=== PATIENT | female | born 1985 | race Caucasian/White ===

== ENCOUNTER 2020-03-31 09:06 | Emergency (ER) | payer OTHER, SELFPAY ==
[2020-03-31 09:12] VITALS: BP 127/75; PULSE 91; RESP 18; TEMP 37.2; O2SAT 98
--- NOTE | 2020-03-31 09:34 | ED.URI ---
HPI - URI/Sore Throat General Chief Complaint: Upper Respiratory Infection Stated Complaint: sore throat/fever 100.2 Time Seen by Provider: 03/31/20 09:34 Source: patient History of Present Illness HPI Narrative: patient presents with a sore throat and fever. no trouble swallowing no cough no nasal congestion. Patient reported a fever this am. releived with tylenol. Patient states she feels as if she has strep throat again. Patient states when she has strep throat she has the same symptoms fever body aches feels like razors when she swallows. No trouble swallowing no drooling can open mouth fully. MD elicited complaint: sore throat Exacerbating factors: swallowing Related Data Home Medications Medication Instructions Recorded Confirmed ascorbic acid (vitamin C) 500 mg PO DAILY 03/31/20 03/31/20 nutritional supplement-fiber ea 03/31/20 [Juice Plus] Allergies Allergy/AdvReac Type Severity Reaction Status Date / Time No Known Allergies Allergy Verified 02/17/20 11:15 Review of Systems Review of Systems: Narrative: CONSTITUTIONAL: Denies fever, chills, or sweats. EYES: Denies visual changes, redness, or discharge. ENT: Denies rhinorrhea, congestion, sore throat, or otalgia. CARDIOVASCULAR: Denies chest pain, palpitations, or edema. RESPIRATORY: Denies cough or dyspnea. GASTROINTESTINAL: Denies abdominal pain, nausea, vomiting, or diarrhea. GENITOURINARY: Denies dysuria or hematuria. SKIN: Denies rash or itching. MUSCULOSKELETAL: Denies back pain, joint pain, or myalgia. NEUROLOGIC: Denies headache, numbness, or weakness. PSYCHIATRIC: Denies anxiety or depression. [facility] Past Medical History Medical History (Updated 03/31/20 @ 09:43 by SHERRIE Olmstead) Sensorineural hearing loss (SNHL) of both ears Surgical History Surgical History History of 3 sections 2012, 2014, 2017 History of D&C 2016 Family History Family History Father Hypertension Mother Hypertension Family history of diabetes mellitus in first degree relative Social History Social History Smoking status: Never smoker Alcohol intake: current Comments At time of signature, agree with nursing past medical, surgical, social and family history. There is no relevant family history pertinent to the presenting complaint Exam Narrative: Exam Narrative: GENERAL: Well-appearing, well-nourished, and in no acute distress. HEAD: Normocephalic, atraumatic. EYES: PERRLA and EOMI. ENT: Nares clear, no rhinorrhea or epistaxis. Mucous membranes moist. Mild pharyngeal erythema no exudate no drooling no trismus able to open mouth fully NECK: Supple. CHEST: Clear to auscultation. No respiratory distress. HEART: Regular rate and rhythm. No murmur heard. Normal peripheral pulses. ABDOMEN: Soft, nontender, nondistended, normal active bowel sounds. EXTREMITIES: Normal range of motion. No edema. SKIN: Warm, dry, no rash. NEURO: No focal deficits. Alert and oriented x3. [place] Coma Scale Eye Opening: Spontaneous 4 [place] Coma Scale Motor: Obeys Commands 6 [place] Coma Scale Verbal: Oriented 5 [place] Coma Scale Total 15 Course Vital Signs Vital signs: Vital Signs Temperature 37.2 C 03/31/20 09:12 Pulse Rate 91 03/31/20 09:12 Respiratory Rate 18 03/31/20 09:12 Blood Pressure 127/75 03/31/20 09:12 Pulse Oximetry 98 03/31/20 09:12 Temperature 37.2 C 03/31/20 09:12 Pulse Rate 91 03/31/20 09:12 Respiratory Rate 18 03/31/20 09:12 Blood Pressure 127/75 03/31/20 09:12 Pulse Oximetry 98 03/31/20 09:12 MDM - URI/Sore Throat Lab Data Labs: Strep Screen Presumptive Negative *(Reference Range: Negative)* Critical Care Time Critical Care Time Critical Care T
== END 2020-03-31 09:45 | disposition home or self-care (01) ==
PROVIDERS: Emergency Provider Nurse Practitioner Family; PCP Family Medicine
DX: J02.9 Acute pharyngitis, unspecified (principal)
CPT/HCPCS: 87081; 87880; 99213; G0463

== ENCOUNTER → 2021-03-28 13:49 | Outpatient (REF) | payer OTHER, SELFPAY | LOC: ANHLAB 13:49 | PROVIDERS: PCP Family Medicine; Visit Provider Nurse Practitioner | DX: D49.2 Neoplasm of unspecified behavior of bone, soft tissue, and skin (principal) | CPT/HCPCS: 88305 ==

== ENCOUNTER 2021-04-29 13:19 | Outpatient (CLI) | payer OTHER, SELFPAY ==
--- NOTE | ~2021-04-29 | MM_ITS ---
EXAMINATION: MM diagnostic charlie BI w doug HISTORY: Waxing and waning lumps in the medial breast TECHNIQUE: Additional 3-D tomosynthesis images of the breasts were performed and synthetic 2-D images were generated. CAD analysis was submitted and interpreted. COMPARISON: 11/26/2018 BREAST PARENCHYMAL COMPOSITION: The breasts are heterogeneously dense, which may obscure small masses . FINDINGS: An asymmetry is present in the middle third of the outer right breast 4 cm from the nipple on the craniocaudal view. No definite mammographic correlate is identified for the patient's reported palpable abnormalities of concern. There is no suspicious calcification or architectural distortion. IMPRESSION: 1. No mammographic correlate for the patient's reported breast lumps. Bilateral breast ultrasound tar geted to the areas of palpable concern and ultrasound of the upper outer right breast is recommended. BI-RADS Category 0: Incomplete: Needs additional imaging evaluation. Reviewed, dictated and finalized at location A. QUALITY TECHNICIAN IMPRESSION: 1. No mammographic correlate for the patient's reported breast lumps. Bilateral breast ultrasound targeted to the areas of palpable concern and ultrasound of the upper outer right breast is recommended. BI-RADS Category 0: Incomplete: Needs additional imaging evaluation.
== END 2021-04-29 13:20 | disposition home or self-care (01) ==
LOC: ANHIMG 13:22
PROVIDERS: PCP Family Medicine; Visit Provider Obstetrics & Gynecology
DX: N64.4 Mastodynia (principal); R92.8 Other abnormal and inconclusive findings on diagnostic imaging of breast
CPT/HCPCS: 77062; 77066; G0279

== ENCOUNTER 2021-05-11 11:52 | Outpatient (CLI) | payer OTHER, SELFPAY ==
--- NOTE | ~2021-05-11 | US_ITS ---
US breast BI limited DATE: 05/11/2021 12:30 INDICATION: Breast pain. Breast lumps. TECHNIQUE: Bilateral complete breast ultrasound including all 4 quadrants and subareolar areas. Color flow imaging was performed. COMPARISON: 04/29/2021 bilateral diagnostic mammography FINDINGS: No suspicious mass or shadowing or other significant sonographic finding is noted. IMPRESSION: BI-RADS Category 1: Negative Reviewed, dictated and finalized at Location A. Reviewed, dictated and finalized at location A. ZER OPERATOR
== END 2021-05-11 11:53 | disposition home or self-care (01) ==
LOC: ANHIMG 11:53
PROVIDERS: PCP Family Medicine; Visit Provider Obstetrics & Gynecology
DX: N64.4 Mastodynia (principal)
CPT/HCPCS: 76642

== ENCOUNTER → 2021-05-30 14:07 | Outpatient (REF) | payer OTHER, SELFPAY | LOC: ANHLAB 14:07 | PROVIDERS: PCP Family Medicine; Visit Provider Nurse Practitioner | DX: D22.39 Melanocytic nevi of other parts of face (principal) | CPT/HCPCS: 88305 ==

== ENCOUNTER 2022-02-17 13:24 | Outpatient (CLI) | payer OTHER, SELFPAY | END 2022-02-17 13:25 | disposition home or self-care (01) | LOC: ANHLAB 13:25 | PROVIDERS: PCP Family Medicine; Visit Provider Otolaryngology | DX: J02.9 Acute pharyngitis, unspecified (principal) | CPT/HCPCS: 87081; 87880 ==

== ENCOUNTER 2022-04-30 14:48 | Emergency (ER) | payer OTHER, SELFPAY ==
[2022-04-30 15:24] VITALS: BP 118/76; PULSE 89; RESP 14; TEMP 36.9; O2SAT 100
--- NOTE | 2022-04-30 17:35 | ED.URI ---
HPI - URI/Sore Throat General Chief Complaint: Upper Respiratory Infection Stated Complaint: Cough/Fever/Chills Time Seen by Provider: 04/30/22 17:35 Source: patient, RN notes reviewed and old records reviewed Mode of arrival: ambulatory Limitations: no limitations History of Present Illness HPI Narrative: 37 year old female who presents to express care with complaints of fevers, chills body aches, cough which is productive at times for the past 3 days. 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 Patient reports that her kids have also been ill with similar symptoms. She states that she took a home COVID test 2 days ago which was negative. Patient has treated self with cold medication and OTC Tylenol and Ibuprofen. MD elicited complaint: fever, cough, rhinorrhea and nasal congestion Onset (ago): day(s) (day 3 of symptoms) Treatments prior to arrival: acetaminophen, ibuprofen and cold medicine Related Data Allergies Allergy/AdvReac Type Severity Reaction Status Date / Time No Known Allergies Allergy Verified 04/30/22 16:26 Review of Systems Review of Systems: CONSTITUTIONAL: Reports malaise, chills, sweats, or fever. EYES: Denies visual changes, redness, or discharge. ENT: Reports rhinorrhea, congestion, sinus pain, otalgia and sore throat. CARDIOVASCULAR: Denies chest pain, palpitations, or edema. RESPIRATORY: Reports cough.? Denies dyspnea. GASTROINTESTINAL: Denies abdominal pain, nausea, vomiting, diarrhea SKIN: Denies rash or itching. MUSCULOSKELETAL: Reports myalgia. NEUROLOGIC: Denies headache. All systems reviewed & are unremarkable except as noted in HPI and below PMFSH Past Medical History Medical History Sensorineural hearing loss (SNHL) of both ears Surgical History Surgical History History of 3 sections 2013, 2014, 2017 History of D&C 2016 Family History Family History Father Hypertension Mother Hypertension Family history of diabetes mellitus in first degree relative Social History Social History Smoking status: Unknown if ever smoked Alcohol intake: current Comments At time of signature, agree with nursing past medical, surgical, social and family history. There is no relevant family history pertinent to the presenting complaint Exam Narrative: GENERAL: Well-appearing, well-nourished, and in no acute distress. HEAD: Normocephalic EYES: PERRLA, conjunctivae clear ENT: Nares clear, turbinates edematous and erythematous, clear discharge. Mucous membranes moist. TM pearly clark with dull light reflex bilaterally; no tragal tenderness. Oropharynx erythematous without lesions. Tonsils not enlarged and without exudate, no drooling, no hoarseness, no trismus, uvula midline. NECK: Supple. No lymphadenopathy CHEST: Clear to auscultation, breath sounds equal. No wheezing, rhonchi, rales, or stridor. No respiratory distress, speaks in full sentences.harsh cough, SAO2 100% on room air HEART: Regular rate and rhythm. No murmur heard. SKIN: Warm, dry, no rash. NEURO: Alert and oriented x3. PSYCH: Normal mood and affect Course Course Emergency Course: Patient is aware of diagnosis, understands and agrees to treatment plan.? Anticipatory guidance given.? Patient agrees to follow-up as directed and is aware of reasons to seek care at the emergency department. Portions of this record may have been created with voice recognition software Level of Care: Express Care Visit Vital Signs Vital signs: Vital Signs Temperature 36.9 C 04/30/22 15:24 Pulse Rate 89 04/30/22 15:24 Respiratory Rate 14 04/30/22 15:24 Blood Pressure 118/76 04/30/22 15:24 Pulse Oximetry 100 04/30/22 15:24 Oxygen Deliv
== END 2022-04-30 18:15 | disposition home or self-care (01) ==
PROVIDERS: Emergency Provider Registered Nurse; PCP Family Medicine
DX: J11.1 Influenza due to unidentified influenza virus with other respiratory manifestations (principal)
CPT/HCPCS: 87804; 99213; G0463

== ENCOUNTER 2023-04-18 07:47 | Outpatient (CLI) | payer OTHER, SELFPAY ==
[2023-04-18 08:10] LABS: Appearance Urine Clear (Clear); Bilirubin Urine Negative (Negative); Blood Urine Negative (Negative); Color Urine Yellow (Yellow); Glucose Urine UA Negative (Negative); Ketones Urine Negative (Negative); Leukocyte Esterase Ur Negative LEU/UL (NEGATIVE); Nitrate Urine Negative (Negative); Protein Urine Negative (Negative); Urobilinogen Urine 0.2 mg/dL (<2.0); pH Urine 5.5 (5.0-9.0)
[2023-04-18 08:17] LABS: Hematocrit 43.2 % (37.0-47.0); Hemoglobin 14.5 g/dL (12.0-15.0); Mean Corpuscular HGB Conc 33.6 g/dl (32-36); Mean Corpuscular Volume 89.4 fl (80-100); Mean Platelet Volume 10.5 fl (7.4-10.4); Platelet Count Result 209 k/mm3 (150-375); Red Blood Count 4.83 M/mm3 (4.2-5.4); Red Cell Distribution Width 12.4 % (11.5-14.5)
[2023-04-18 08:27] LABS: Alanine Aminotransferase 20 U/L (6-35); Albumin Level 4.6 g/dL (3.5-5.1); Alkaline Phosphatase 72 U/L (38-126); Anion Gap 5 mmol/L (8-16); Aspartate Amino Transferase 24 U/L (14-36); Bilirubin,Total 0.8 mg/dL (0.2-1.3); Blood Urea Nitrogen 11 mg/dL (7-17); Calcium 9.4 mg/dL (8.4-10.2); Carbon Dioxide 29 mmol/L (22-30); Chloride 101 mmol/L (98-107); Cholesterol 179 mg/dL (0-200); Estimated Glomerular Filt Rate > 60; Glucose 92 mg/dL (65-110); HDL Direct 49 mg/dL; Potassium 3.9 mmol/L (3.4-5.0); Sodium 135 mmol/L (137-145); Triglycerides 121 mg/dL (<150)
[2023-04-18 08:38] LABS: LDL Cholesterol Direct 89 mg/dL
[2023-04-18 08:57] LABS: Add Urine Microscopic? NO
== END 2023-04-18 07:48 | disposition home or self-care (01) ==
LOC: ANHLAB 07:48
PROVIDERS: PCP Family Medicine; Visit Provider Family Medicine
DX: Z00.00 Encounter for general adult medical examination without abnormal findings (principal)
CPT/HCPCS: 36415; 80053; 80061; 81003; 84443; 85027

== ENCOUNTER 2023-08-16 11:08 | Outpatient (CLI) | payer OTHER, SELFPAY ==
--- NOTE | ~2023-08-16 | MMUS_ITS ---
EXAMINATION: MM diagnostic charlie BI w doug, US breast BI complete HISTORY: Bilateral breast pain intermittently since 2019 TECHNIQUE: Full field and spot ML, MLO and CC of both breasts were performed and synthetic 2-D images were generated. CAD analysis was submitted and interpreted. High resolution bilateral complete breas t ultrasound examination including all 4 quadrants and subareolar areas was performed. COMPARISON: 04/29/2021 bilateral diagnostic mammogram BREAST PARENCHYMAL COMPOSITION: The breasts are heterogeneously dense, which may obscure small masses . FINDINGS: MAMMOGRAPHIC FINDINGS: Stable fibroglandular asymmetry is noted. No suspicious mass, architectural distortion, malignant ana laura cification, skin thickening or retraction or significant new or developing density is evident. Small masses might be missed due to the density of the stroma. Bilateral complete breast ultrasound e xamination was performed. ULTRASOUND: No suspicious mass or shadowing of either breast is detected. Right breast: 4:00 4 cm from nipple: Circumscribed oval parallel 2 x 3.8 x 5.4 mm sonolucency with no internal vas cularity or posterior shadowing, benign in appearance. Left breast: 2 x 2.7 mm sonolucency without internal vascularity or suspicious shadowing, benign in appearance. IMPRESSION: 1. Benign findings 2. Routine annual mammographic screening is recommended BI-RADS Category 2: Benign finding(s). Reviewed, dictated and finalized at location A. RIBUTION ENGINEERING TECHNOLOGIST IMPRESSION: 1. Benign findings 2. Routine annual mammographic screening is recommended BI-RADS Category 2: Benign finding(s).
== END 2023-08-16 11:09 | disposition home or self-care (01) ==
PROVIDERS: PCP Family Medicine; Visit Provider Obstetrics & Gynecology
DX: N64.4 Mastodynia (principal)
CPT/HCPCS: 76641; 77062; 77066; G0279

== ENCOUNTER 2024-07-28 16:05 | Emergency (ER) | payer OTHER, SELFPAY ==
[2024-07-28 16:36] VITALS: BP 142/85; PULSE 82; RESP 16; TEMP 37.2; O2SAT 100
--- NOTE | 2024-07-28 16:58 | ED.URI ---
HPI - URI/Sore Throat General Chief Complaint: Upper Respiratory Infection Stated Complaint: sore throat and chills Time Seen by Provider: 07/28/24 16:58 History of Present Illness HPI Narrative: 3-year-old female presented for complaint of sore throat, headache and chills. Onset today. States these her classic strep throat symptoms. Denies cough, nasal congestion, nausea, vomiting, diarrhea. Not taking anything for symptoms. Related Data Home Medications ?Medication ?Instructions ?Recorded ?Confirmed ?Last Taken ?Type No Home Medications 04/11/23 04/11/23 Unknown History Allergies Allergy/AdvReac Type Severity Reaction Status Date / Time No Known Allergies Allergy Verified 07/28/24 16:42 Review of Systems Review of Systems: Per [facility] Past Medical History Medical History Sensorineural hearing loss (SNHL) of both ears Surgical History Surgical History History of D&C 2016 History of 3 sections 2012, 2013, 2017 Family History Family History Father Hypertension Mother Hypertension Family history of diabetes mellitus in first degree relative Social History Social History Smoking status: Unknown if ever smoked Alcohol intake: current Exam Narrative: GENERAL: Mildly Ill-appearing, no acute distress. EYES: conjunctivae clear ENT: Mucous membranes moist. TMs pearly clark with normal light reflex bilaterally; no tragal tenderness. Oropharynx not erythematous without lesions. Tonsils not enlarged and without exudate. No drooling, no hoarseness, no trismus, uvula midline. No tripod positioning, hot potato voice, or soft palate swelling. NECK: Supple. No lymphadenopathy CHEST: Clear to auscultation, breath sounds equal. No respiratory distress, speaks in full sentences. HEART: Regular rate and rhythm. No murmur heard. SKIN: Warm, dry, no rash. NEURO: Alert and oriented x3. Course Course Emergency Course: Patient is aware of diagnosis, understands and agrees to treatment plan. Anticipatory guidance given. Patient agrees to follow-up as directed and is aware of reasons to seek care at the emergency department. Portions of this record may have been created with voice recognition software Level of Care: Express Care Visit Vital Signs Vital signs: Vital Signs Temperature 99.0 F 07/28/24 16:36 Pulse Rate 82 07/28/24 16:36 Respiratory Rate 16 07/28/24 16:36 Blood Pressure 142/85 H 07/28/24 16:36 Pulse Oximetry 100 07/28/24 16:36 Oxygen Delivery Room Air 07/28/24 16:36 Temperature 99.0 F 07/28/24 16:36 Pulse Rate 82 07/28/24 16:36 Respiratory Rate 16 07/28/24 16:36 Blood Pressure 142/85 H 07/28/24 16:36 Pulse Oximetry 100 07/28/24 16:36 Oxygen Delivery Room Air 07/28/24 16:36 MDM - URI/Sore Throat MDM Narrative Medical decision making narrative: neg flu covid and strep result reviewed with pt. She states these are my classic strep symptoms. Advised strep test was likely to early, however pt is adamant to start abx at this time. Advised to call for culture. Advise supportive treatments. Patient is appropriate for outpatient treatment and follow-up. Differential Diagnosis Differential diagnosis: Likely upper respiratory infection, viral infection and pharyngitis Lab Data Labs: Lab Results 07/28/24 Range/Units 16:50 POC Grp A Strep Screen Negative (Negative) Discharge Plan Discharge Clinical Impression: Pharyngitis Patient Disposition: Home, Self-Care Condition: Stable Instructions: Antibiotic Form, Upper Respiratory Infection (ED) Additional Instructions: - Take the antibiotic as directed. Fever and sore throat typically resolve within one to three days. Most patients can return to work, school, or daycare after 12 to 24 hours of antibiotic therapy, provided you are fever free and otherwise well. -Eat and drink things that are easy to swallow, like soft foods, cool liquids, tea with honey, or popsicles . -Salt water gargles and/or may use topical anesthetic ( Chloraseptic spray) or lozenges to relieve dryness or throat pain -Alternate Tylenol and ibuprofen as needed for pain and fever as directed. -Frequent hand washing or hand it applications manager is one of the best ways to prevent spread of infection. Throw away the toothbrush after 24hours of antibiotic. -Follow up with primary care provider in 2-3 days if condition is not improving -Go to the ER if you have trouble breathing, cannot drink enough fluids, have muffled voice or drooling, difficulty opening your mouth, or severe swelling. Patient Language: [place] Islander Prescriptions: New amoxicillin 500 mg tablet 1,000 mg PO DAILY 10 Days Qty: 20 0RF No Action No Home Medications Follow-up/Referrals: Silverio,STONE Velasco [Primary Care Provider] - Time of Disposition: 17:28
[2024-07-28 17:01] LABS: EDSTREPNEGPOS1 Negative (Negative)
[2024-07-28 17:39] LABS: EDCOVIDSCREEN Negative (Negative); EDINFLUASCREEN Negative (Negative); EDINFLUBSCREEN Negative (Negative)
--- OUTSIDE RECORDS SUMMARY | 2024-07-28 18:21 | XMS_ITS | Clinical Summary ---
Author Organization [facility] Address [address] [place] [place] [address] Care Team Providers Care Linux System Administrator Name Role Phone Moe Davis MD Primary Care Provider [phone] Deven Alaniz DO Unavailable Source Comments [facility],non-owned Affiliates and Associated Physician Practices is amultiple site organization consisting of ambulatory clinics and hospital sitesin [place], [place], [place] and [place]. This disclosure is being madepursuant to the Care Everywhere program and may not contain all information available regarding this patient. Last updated 18.[facility] Allergies No known active allergies Medications * Be aware that medications may not be up to date on this document. Always verify current medications with the patient. Medication Sig Dispensed Refills Start Date End Date Status SEBASTIAN PO Take by mouth. Active VALTREX 500 MG TABS Take 500 mg by mouth as needed Active promethazine-codeine (PHENERGAN WITH CODEINE) 6.25-10 MG/5ML solution Take 5 mL by mouth every 6 hours as needed for Cough. 8 oz 0 03/01/2009 Active moxifloxacin (AVELOX) 400 MG tablet Take 1 Tab by mouth daily. 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 Immunizations Name Administration Dates Next Due HEP B VACCINE, PED/ADOL 07/16/2002,2002, Human Papilloma Virus Vaccine 09/09/2008, 009 MMR 01/28/1991,08/15/1985 Social History Tobacco Use Types Packs/Day Years Used Date Smoking Tobacco: Never Smokeless Tobacco: Never Alcohol Use Standard Drinks/Week Comments Yes 0 (1 standard drink = 0.6 oz pur e alcohol) socially Sex and Gender Information Value Date Recorded Sex Assigned at Not on file Gender Identity Not on file Sexual Orientation Not on file Last Filed Vital Signs Vital Sign Reading Time Taken Comments Blood Pressure 110/70 03/01/2009 4:34 PM CDT Pulse 88 03/01/2009 4:34 PM CDT Temperature 36.6 C (97.9 F) 03/01/2009 4:34 PM CDT Respiratory Rate - - Oxygen Saturation - - Inhaled Oxygen Concentration - - Weight 65.3 kg (144 lb) 03/01/2009 4:34 PM CDT Height - - Body Mass Index - - Plan of Treatment Health Maintenance Due Date Last Done Comments LIPID TESTING 1984 MAMMOGRAM 1984 PAP SMEAR 1984 HIV SCREENING 02/10/1999 HEPATITIS C SCREENING 02/06/2002 DTAP/TDAP/TD VACCINES (1 - Tdap) 02/10/2003 HPV VACCINE (3 - 3-dose series) 12/30/2008 09/09/2008, 07/02/2008 COVID-19 VACCINE ( - 2023-2 5 season) 2024 INFLUENZA VACCINE (#1) 2024 DEPRESSION SCREENING 06/11/2024 ZOSTER VACCINE (1 of 2) 02/10/2034 HEPATITIS B VACCINE Completed 07/16/2002, 2002, 01/07/2002 HIB VACCINE Aged Out No longer eligi ble based on patient's age to complete this topic MENINGOCOCCAL (Group B) VACCINE Aged Out No longer eligible b ased on patient's age to complete this topic MENINGOCOCCAL VACCINE Aged Out No [place] braulio eligible based on patient's age to complete this topic PNEUMOCOCCAL VACCINE Aged Out No long er eligible based on patient's age to complete this topic Care Teams Linux System Administrator Relationship Specialty Start Date End Date Moe Davis MD [address] [place] [address] PCP - General 03/31/21 [place] [address] [place] [id number] 03/31/21
--- OUTSIDE RECORDS SUMMARY | 2024-07-28 18:21 | XMS_ITS | Data Portability ---
Author Organization [facility] Address [address] [place] [address] Care Team Providers Care Fire Extinguisher Repairer Inspector Name Role Phone BIMAL VALDES Primary Care Provider Assessment Encounter Date Assessment Date Assessment LastModified by Organization Details LastModified Time 09/24/2023 09/24/2023 Mammogram and ultrasound UTD this year recent. dense breast tissue. [email or web address] Not available 09/24/2023 10:49:26 Plan of Treatment Reminders Order Date Submit Date Provider Last Modified By Organization Details Last Modified Time Details Appointments ANY 15 025 08:15AM VASILIY Hess Not available Not available Not available Lab None record ed. Referral None record ed. Procedures None record ed. Surgeries None record ed. Imaging None record ed. Medication Orders None record ed. Patient TargetsNo targets recorded. Patient InstructionsNo instructions recorded. Reason for Referral None Reported. Procedures Surgical History Date Name Laterality Status Provider Name and Address Organization Details Recorded Time 5 Eye Surgery completed Alethea Sharma MA [facility] 09/24/2023 10:35:19 Caesarean Section completed Alethea Sharma MA [facility] 09/24/2023 10:36:30 Imaging Results None recorded. Procedure Notes None recorded. Medical Equipment None Reported. Allergies No known drug allergies Medications Name Sig Start Date Stop Date Status Note LastModified by Organization Details LastModified Time valacyclovir 500 mg tablet TAKE 1 TABLET BY MOUTH DAILY active Not Available Not Available No t Available Vitals Date Recorded Body weight Body mass index (BMI) Body height Heart rate Oxygen saturation Oxygen saturation in Arterial blood by Pulse oximetry Systolic blood pressure Diastolic blood pressure Provider Name and Address Organization Details Last Updated DateTime 4 42345 g 26.1 kg/m2 165.1 cm 75 /min 99 % 99 % 120 mm[Hg] 76 mm[Hg] Alethea Sharma MA [facility] 10:42:09 Date Recorded Respiratory rate Systolic blood pressure Diastolic blood pressure Provider Name and Address Organization Details Last Updated DateTime 09/24/2023 16 /min 120 mm[Hg] 80 mm[Hg] VASILIY Hess Attn: Accounting, [address] [place], [address], [facility] 09/24/2023 10:56:57 Social History Question Answer Notes LastModified by Organizat ion Details LastModified Time Tobacco Smoking Status Never Smoker Alethea Sharma MA [facility], [facility] 09/24/2023 10:33:01 Do You Have An Advance Directive? No Information not available 09/24/2023 What Is Your Level Of Alcohol Consumption? Occasional Information not available 09/24/2023 Are You Blind Or Do You Have Difficulty Seeing? No Information not available 09/24/2023 What Is Your Level Of Caffeine Consumption? Moderate Coffee Information not available 09/24/2023 In The 14 Days Before Symptom Onset, Have You Had Close Contact With A Laboratory-confir med COVID-19 While That Case Was Ill? No Information not available 09/24/2023 In The 14 Days Before Symptom Onset, Have You Had Close Contact With A Person Who Is Under Investigation For COVID-19 While That Person Was Ill? No Information not available 09/24/2023 Have You Been To An Area Known To Be High Risk For COVID-19? No Information not available 09/24/2023 Are You Currently Employed? Yes Information not available 09/24/2023 Are You Deaf Or Do You Have Serious Difficulty Hearing? Yes Hearing Aide Information not available 09/24/2023 What Type Of Diet Are You Following? REGULAR Information not available 09/24/2023 What Is The Highest Grade Or Level Of School You Have Completed Or The Highest Degree You Have Received? 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 No Information not available 09/24/2023 What Was The Date Of Your Most Recent Tobacco Screening? 09/24/2023 Information not available 09/24/2023 What Is Your Relationship Status? Information not available 09/24/2023 Do You Have Smoke And Carbon Monoxide Detectors In Your Home? Yes Information not available 09/24/2023 Do You Feel Stressed (tense, Restless, Nervous, Or Anxious, Or Unable To Sleep At Night)? [id number] Information not available 09/24/2023 Do You Use Sunscreen Routinely? Yes Information not available 09/24/2023 Sex: Unknown Functional Status Question Answer Note LastModified by Organization D etails LastModified Time Are you able to care for yourself? Yes Information not available 09/24/2023 What is your exercise level? Moderate Information not available 09/24/2023 Mental Status None recorded. Family History Relationship Description Onset Age of this Age Resolved Age Notes LastModified by Organization Details LastModified Time Mother Diabetes mellitus [email or web address] Not available 2023 10:32:07 Paternal Grandmother Diabetes mellitus [email or web address] Not available 2023 10:32:14 Paternal Grandfather Heart disease mebyma Not available 2023 10:32:24 Medical History Condition Response Coronary Artery Disease N Other N Atrial Fibrillation N High Blood Pressure N Kidney or Bladder Problems N Thyroid Problems N GI Problems N Depression N COPD N Blood Clots N Skin Problems N Anemia N Heart Attack ([place]) N Anxiety Disorder N Diabetes N Muscle, Joint, or Bone Problems N Seizures/Epilepsy N Acid Reflux (GERD) N Cancer N Stroke N Asthma N Allergies N High Cholesterol N Hepatitis N Liver Disease N Headaches Y Heart Failure N Osteoporosis N Gynecological History Statement/Question Response Current Control Method Tubal Ligat ion Date of LMP 09/11/2023 Age at First Child 27 Obstetrics History GPAL:G 3 P 0 0 0 3 Type Value Living 3 Total 3 Past Encounters Encounter ID Performer Location Encounter Start Date Encounter Closed Date Diagnosis/Indication Diagnosis SNOMED-CT Code Diagnosis ICD10 Code Diagnosis Note [id number] VASILIY Hess [facility] - Ankur Callahan [address] [place] [address] 09/24/2023 10:15:39 09/24/2023 12:22:23 Adult health examination 821387398 Z00.00 new pt well exam completed. Herpes labialis 4551635 B00.1 PRN use of valtrex for cold sores. hasn't had to use in a year or so. Health Concerns Section Related Observation LastModified by Organization Detai ls LastModified Time None Recorded Concern Status LastModified by Organization Details LastModified Time None Recorded Advance Directives Directive N: Payers Encounter Date Sequence Insurance Name Policy Number Policy Bauman Covered Member ID Bauman Member ID Guarantor Name 09/24/2023 1 [facility] [id number] Sparkle Yan [id number] Sparkle Yan Notes Date Note Type Note Provider Name and Address Organization Details Recorded Time 09/24/2023 text/html Generic HPI TemplateReported bypatient.Notes:new pt /establish care with new PCP. no complaints. she feels very good. exercises routinely. active with her children. health diet. 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 VASILIY Hess Attn: Accounting,[address] [facility], [place], [address], [facility] 09/24/2023 11:07:20 OBGyn Episode No OBEpisode recorded.
--- OUTSIDE RECORDS SUMMARY | 2024-07-28 18:21 | XMS_ITS | Patient Health Summary ---
Author Organization [facility] Address [address] [place] [address] Care Team Providers Care Cream Maker Name Role Phone Moe Davis MD Primary Care Provider [phone] Deven Alaniz DO Unavailable Note from [facility],non-owned Affiliates and Associated Physician Practices is amultiple site organization consisting of ambulatory clinics and hospital sitesin [place], [place], [place] and [place]. This disclosure is being madepursuant to the Care Everywhere program and may not contain all information available regarding this patient. Last updated 18.[facility] Allergies No known active allergies Medications * Be aware that medications may not be up to date on this document. Alwaysverify current medications with the patient. * SEBASTIAN PO Take by mouth. * VALTREX 500 MG TABS Take 500 mg by mouth as needed * promethazine-codeine (PHENERGAN WITH CODEINE) 6.25-10 MG/5ML solution(Started 03/01/2009) Take 5 mL by mouth every 6 hours as needed for Cough. * moxifloxacin (AVELOX) 400 MG tablet(Started 03/01/2009) Take 1 Tab by mouth daily. Active Problems Problem Noted Date Diagnosed Date Migraine headache 03/27/2002 Herpes labialis 04/08/2001 Immunizations * HEP B VACCINE, PED/ADOL(Given 07/16/2002, 2002, 01/07/2002) * Human Papilloma Virus Vaccine(Given 09/09/2008, 07/02/2008) * MMR(Given 01/28/1991, 08/15/1985) Social History Tobacco Use Types Packs/Day Years [...] - - Body Mass Index - - Care Teams Cream Maker Relationship Specialty Start Date End Date Moe Davis MD [address] [place] [address] PCP - General 03/31/21 [place] [address] [address] [id number] 03/31/21
--- OUTSIDE RECORDS SUMMARY | 2024-07-28 18:21 | XMS_ITS | Referral Summary ---
Author Organization [facility] Address [address] [place] [address] Care Team Providers Care Boomboat Operator Name Role Phone Moe Davis MD Primary Care Provider [phone] Deven Alaniz DO Unavailable Source Comments [facility],non-owned Affiliates and Associated Physician Practices is amultiple site organization consisting of ambulatory clinics and hospital sitesin [place], [place], [place] and [place]. This disclosure is being madepursuant to the Care Everywhere program and may not contain all information available regarding this patient. Last updated 18.[facility] Allergies No known active allergies Medications * Be aware that medications may not be up to date on this document. Alwaysverify current medications with the patient. Medication Sig [...] Mass Index - - Plan of Treatment Not on file Care Teams Boomboat Operator Relationship Specialty Start Date End Date Moe Davis MD [address] [place] [address] PCP - General 03/31/21 [place] [address] [place] [address] 03/31/21
--- OUTSIDE RECORDS SUMMARY | 2024-07-28 18:21 | XMS_ITS | Data Portability ---
Author Organization [facility], Main Office Address [address] [place] [address] [address] [place] [address] Assessment No assessment recorded. Plan of Treatment Reminders Order Date Submit Date Provider Last Modified By Organization Details Last Modified Time Details Appointments None record ed. Lab None record ed. Referral None record ed. Procedures None record ed. Surgeries None record ed. Imaging None record ed. Medication Orders None record ed. Patient TargetsNo targets recorded. Patient Instructions Encounter Date Encounter Id Patient Instructions Last Modified By Organization Details Last Modified Time 11/15/2021 [id number] hemorrhoids: car e instructions Not available 11/15/2021 13:44:56 She will follow up if she decides to start treatment. On today's visit I spent a total of {{30 35 40* 45 50 55 60}} minutes prepping for her visit (reviewing shared records), [id number] with her and documenting. Not available 11/15/2021 13:44:20 Reason for Referral None Reported. Problems Name Problem SNOMED Code Status Onset Date Resolution Date Notes Provider Name and Address Organization Details Recorded Time Pile easily reducible 526088531 Active 202111/15/21: No tx - wants to think about options Eden Sales MD [address], [place], [address], [facility] 2 13:42:22 External hemorrhoids 03710027 Active 2021 Eden Sales MD [address] [facility] [facility], [place], [address], [facility] 13:39:58 Problem Notes None recorded. Procedures Surgical History Date Name Laterality Status Provider Name and Address Organization Details Recorded Time 2 Anoscopy completed Eden Sales MD [address] [place] [address],[address], [place], [address], [facility] [place] 11/15/2021 13:34:26 7 section completed Eden Sales MD [address] [place] [address],[address], [place], [address] [place] [address] [facility] [place] 11/15/2021 13:03:23 7 ligation of bilateral fallopian tubes completed Eden Sales MD [address] [place] [address],[address], [address] [address] [facility] [place] 11/15/2021 13:03:43 Imaging Results None recorded. Procedure Notes None recorded. Medical Equipment None Reported. Allergies No known drug allergies Medications Name Sig Start Date Stop Date Status Note LastModified by Organization Details LastModified Time amoxicillin 500 mg capsule TAKE 1 CAPSULE BY MOUTH THREE TIMES DAILY FOR 7 DAYS 11/15 completed Not Available Not Available Not Available fluconazole 150 mg tablet active Not Available Not Available Not Available valacyclovir 500 mg tablet TAKE 1 TABLET BY MOUTH EVERY DAY active Not Available Not Available No t Available escitalopram 10 mg tablet TAKE 1 TABLET BY MOUTH EVERY DAY active Not Available Not Available No t Available nitrofuranto in monohydrate/ macrocrystal s 100 mg capsule TAKE ONE CAPSULE BY MOUTH TWICE DAILY FOR 7 DAYS 11/15 completed Not Available Not Available Not Available Multivitamin s active Not Available Not Available Not Available Vitals None Recorded Social History Question Answer Notes LastModified by Organizat ion Details LastModified Time Tobacco Smoking Status Never Smoker Eden Sales MD [address] [place] [address],[address], [address], [facility] [place] 11/15/2021 13:01:55 Alcohol Use Yes Information n ot available 11/15/2021 Alcohol Amount Occasional Information not available 11/15/2021 Caffeine Use Yes Information not available 11/15/2021 Caffeine Amount 2 Iced Coffees Weekly Information not available 11/15/2021 Illicit Drug Use No Information not available 11/15/2021 What Was The Date Of Your Most Recent Tobacco Screening? 11/15/2021 Information not available 11/15/2021 Do You Or Have You Ever Used Any Other Forms Of Tobacco Or Nicotine? No Information not available 11/15/2021 Sex: Female Functional Status None recorded. Mental Status None recorded. Family History Relationship Description Onset Age of this Age Resolved Age Notes LastModified by Organization Details LastModified Time Maternal Grandfather Hypertensive disorder [email or web address] Not available 2021 11:21:09 Maternal Grandfather Heart disease [email or web address] Not available 2021 11:21:37 Maternal Grandfather Diabetes mellitus [email or web address] Not available 2021 11:22:01 Maternal Grandmother Hypertensive disorder [email or web address] Not available 2021 11:21:09 Maternal Grandmother Heart disease [email or web address] Not available 2021 11:21:37 Maternal Grandmother Diabetes mellitus [email or web address] Not available 2021 11:22:01 Mother Diabetes mellitus Not available 2021 13:01:19 Mother No current problems or disability Not available 11/15 13:01:31 Father No current problems or disability Not available 11/15 13:01:31 Medical History Condition Response Headaches/Migraines Y Gynecological HistoryNo gynecological history recorded. Obstetrics History GPAL:G 0 P 0 0 0 0 Past Encounters Encounter ID Performer Location Encounter Start Date Encounter Closed Date Diagnosis/Indication Diagnosis SNOMED-CT Code Diagnosis ICD10 Code Diagnosis Note [id number] Eden Sales MD Main Office [address] [facility] [address] [place] [address] 11/15/2021 10:50:14 11/15/2021 12:18:45 Pile easily reducible 852154972 K64.1 Stage 2 internal hemorrhoid s: I discussed hemorrhoid s in general with her as well as the treatment options. She now understand s that any non-surgic al procedure (infrared coagulatio n or banding) would be done on her internal hemorrhoid s. I do think she would benefit from IRC (although see below). I finished full informed consent for treatment including risks, benefits and alternativ es. All questions were answered. She would like to think about her options and will possibly reschedule to start treatment. I discussed with her she would be a total of 3 - 4 treatments depending on how she does. I would start with her LL, then try to treat both her RP and RA at the same time. I would then do 1 or 2 retreatmen ts.She of course needs to consistent ly eat a high fiber diet and drink plenty of water. She should continue the gummy fiber. I advised she should try to maintain daily and soft (Mallard Scale type 4) BM's. External hemorrhoids 239 14056 K64.4 I do think these will improve with IRC. She understand s the only way to directly treat external hemorrhoid s/skin tags would be with a surgical excision. She does not wish to pursue this at this time and I do not think her hemorrhoid s are not bad enough to warrant surgery. She fully understand s that she will have skin tagging with any non-surgic al procedure. She declined a surgical consult today. I advised she should consistent ly use the moist baby wipes. Health Concerns Section Related Observation LastModified by Organization Detai ls LastModified Time None Recorded Concern Status LastModified by Organization Details LastModified Time None Recorded Advance Directives Directive None Recorded Payers Encounter Date Sequence Insurance Name Policy Number Policy Bauman Covered Member ID Bauman Member ID Guarantor Name 11/15/2021 1 [facility] [id number] Sparkle Yan [id number] Sparkle Yan Notes Date Note Type Note Provider Name and Address Organization Details Recorded Time 11/15/2021 text/html This is a pleasa nt 36 year old woman who has had symptoms from her hemorrhoids on and off since her pregnancies and deliveries started 9 years ago. She occasionally gets irritated. Bleeding: She has no bleeding with BM's or leakage of blood in between BM's. Pain: None Itching: She occasionally gets some external itching and irritation. Discharge: It is always hard to get clean after BM's because of swelling and irritation. She tries to consistently use the moist baby wipes but cannot always do so when she is at work. She occasionally has difficulty staying clean and has to re-wipe if she has not been able to use the moist wipes the first time. She has never had drainage heavy enough that she has to wear a pad. Prolapse: Not that she feels or has to manually reduce. External swelling: She has external swelling and skin tagging persistently. This occasionally flares and becomes more uncomfortable. She has never kept track of how often she has flares. Discomfort: She has some external irritation and discomfort when she is flared. She denies internal symptoms of pressure, a sense of being blocked when trying to have a BM or a sense of incomplete emptying after BM's. Previous Hemorrhoid Treatment: She used OTC hemorrhoid cream a long time ago but it did not help. She has never had a prescription for or procedure on her hemorrhoids. Previous Lower GI Endoscopy: She has never had a colonoscopy. Bowel Habits: She has had long standing 1 - 2 times daily BM's and they are soft (Mallard Scale type 4). She consistently eats a high fiber diet and drinks plenty of water. She takes 1 gummy fiber daily as well. Eden Sales MD [address] [facility] [facility], [place], [address], [facility] 11/15/2021 13:44:59 OBGyn Episode No OBEpisode recorded.
== END 2024-07-28 17:38 | disposition home or self-care (01) ==
PROVIDERS: Emergency Provider Nurse Practitioner Family; PCP Physician Assistant
DX: J02.9 Acute pharyngitis, unspecified (principal); Z20.822 Contact with and (suspected) exposure to COVID-19
CPT/HCPCS: 87081; 87426; 87804; 87880; 99213; G0463